=== PATIENT | male | born 1955 | race African-American/Black ===

== ENCOUNTER 2019-04-02 07:04 | Day surgery (SDC) | payer MEDICARE ==
[2019-03-31 10:02] VITALS: BMI 31.1
[~2019-04-02 07:04] MED LIST: LACTATED RINGERS 1,000 ML IV SCH
[2019-04-02 07:26] VITALS: RESP 16; TEMP 97.1
[2019-04-02] MEDS ORDERED: LIDOCAINE 1% 20 ML VIAL (10MG/ML) FOR IV START INTRADERMA ONE (07:30)
--- NOTE | 2019-04-02 08:10 | P.GSHP ---
History of Present Illness H&P Date: 04/02/19 Chief Complaint: Screening colonoscopy This is a 63-year-old male who presents today for screening colonoscopy. Patient denies any significant GI complaints. Past Medical History Past Medical History: Hypertension Additional Past Medical History / Comment(s): previous hx of colon polyps History of Any Multi-Drug Resistant Organisms: None Reported Additional Past Surgical History / Comment(s): colonscopy Past Anesthesia/Blood Transfusion Reactions: No Reported Reaction Past Psychological History: No Psychological Hx Reported Smoking Status: Never smoker Past Alcohol Use History: Occasional Past Drug Use History: Marijuana Additional Drug Use History / Comment(s): instructed to hold 24hrs prior to procedure - Past Family History Mother Family Medical History: No Reported History Medications and Allergies Home Medications Medication Instructions Recorded Confirmed Type Enalapril/Hydrochlorothiazide 1 tab PO DAILY 03/31/19 04/02/19 History [Enalapril-Hctz 10-25 mg Tablet] Ibuprofen [Motrin] 800 mg PO Q6H PRN 03/31/19 04/02/19 History Allergies Allergy/AdvReac Type Severity Reaction Status Date / Time No Known Allergies Allergy Verified 04/02/19 07:28 Surgical - Exam Vital Signs Temp Pulse Resp BP Pulse Ox 97.1 F L 86 16 204/108 98 04/02/19 07:23 04/02/19 07:23 04/02/19 07:23 04/02/19 07:23 04/02/19 07:23 - General well developed, well nourished, no distress - Eyes PERRL - ENT normal pinna - Neck no masses - Respiratory normal expansion - Cardiovascular Rhythm: regular - Abdomen Abdomen: soft, non tender Assessment and Plan Assessment: We'll perform screening colonoscopy.
[2019-04-02] MEDS ORDERED: GLYCOPYRROLATE 0.2 MG/ML 2 ML VIAL ONE (08:14)
[2019-04-02] MEDS ORDERED: PROPOFOL 10 MG/ML 20 ML VIAL IV ONE (08:14)
[2019-04-02] MEDS ORDERED: LIDOCAINE 1% INJ 10MG/ML (20 ML MDV) ONE (08:14)
--- NOTE | 2019-04-02 08:44 | P.OP ---
Date of Procedure: 04/02/19 Preoperative Diagnosis: Screening colonoscopy Postoperative Diagnosis: Colon polyps Procedure(s) Performed: Colonoscopy Anesthesia: MAC Surgeon: Darron Almanzar Pathology: other (Rectal polyp, transverse colon polyp) Condition: stable Disposition: PACU Description of Procedure: The patient's placed on the endoscopy table lateral position. He received IV sedation. Digital rectal exam was performed which revealed no abnormalities. The prostate was symmetric without nodules. The flexor colonoscope was then placed patient anus passed rotator colon. Ileocecal valve sutures. The cecum, ascending normal. In the transverse colon a small sessile polyp was removed with the cold forcep. Scope was then brought back and the remainder of the descending and sigmoid colon appeared normal. In the rectum there was another polyp seen this removed with the snare. The scope was withdrawn from patient.
[2019-04-02 08:51] VITALS: BP 132/65; PULSE 77
== END 2019-04-02 09:08 | disposition home or self-care (01) ==
LOC: ORWHC2ENDO 07:04
PROVIDERS: ATTEND Surgery
DX: Z12.11 Encounter for screening for malignant neoplasm of colon (principal); D12.3 Benign neoplasm of transverse colon; K62.1 Rectal polyp; I10 Essential (primary) hypertension; Z79.1 Long term (current) use of non-steroidal anti-inflammatories (NSAID); Z79.899 Other long term (current) drug therapy; Z86.010 Personal history of colon polyps
CPT/HCPCS: 88305; 45380; 45385; J2001; J2704